=== PATIENT | male | born 1935 | race Caucasian/White ===

== ENCOUNTER 2022-09-21 06:10 | Inpatient (IN) ==
--- NOTE | 2022-09-21 06:22 | Emergency Department Note ---
Weakness HPI General Chief complaint: Weakness Stated complaint: Weakness Source: patient Mode of arrival: ambulatory Limitations: no limitations History of Present Illness HPI Narrative: Narrative: This is a 87-year-old male that presents with complaints of weakness and now difficulty with urination with some dark foul-smelling urine. The patient felt that maybe he had heatstroke though he was mostly in the house yesterday despite the complaint of the heat. The patient had no syncopal episode. He can continues to be weak. He has been able to eat without emesis. He has had previous history of a probable cystoscopy due to BPH. He states he usually gets up once a night for urinating. He was very weak when trying to get up today. He denies chest pain. 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 EKG and labs as well as fluids and antibiotics are planned. He does take medication for postnasal drip and allergies at home as well. Related Data Home Medications Medication Instructions Recorded Confirmed aspirin 81 mg tablet,delayed 81 mg PO QDAY 12/05/15 09/16/22 release multivitamin (Multiple Vitamins 1 tab-cap PO QDAY 12/05/15 09/16/22 tablet) ascorbic acid (vitamin C) 500 mg 500 mg PO QDAY 06/19/17 09/16/22 tablet (Vitamin C With Connie Hips) desonide 0.05 % topical ointment 1 applic topical QDAY 06/19/17 09/16/22 fluocinolone 0.01 % shampoo 30 ml topical QDAY PRN Dry Skin 06/19/17 09/16/22 omega-3 fatty acids-fish oil 360 1 cap PO BID 06/19/17 09/16/22 mg-1,200 mg capsule (Fish Oil) potassium gluconate 595 mg (99 mg) 595 mg PO QDAY 12/16/18 09/16/22 tablet calcium carbonate 600 mg-vitamin 1 cap PO QDAY 05/01/21 09/16/22 D3 25 mcg (1,000 unit) capsule cetirizine 10 mg tablet (All Day 10 mg PO QDAY 05/01/21 09/16/22 Allergy (cetirizine)) cholecalciferol (vitamin D3) 25 25 mcg PO QDAY 05/01/21 09/16/22 mcg (1,000 unit) capsule cyanocobalamin (vitamin B-12) 1,000 mcg PO QDAY 05/01/21 09/16/22 1,000 mcg tablet ferrous sulfate 325 mg (65 mg 325 mg PO QDAY 05/01/21 09/16/22 iron) tablet (Feosol) ipratropium bromide 42 mcg (0.06 2 spray intranasal TID 05/01/21 09/16/22 %) nasal spray magnesium 250 mg tablet 250 mg PO QDAY 05/01/21 09/16/22 Previous Rx's Medication Instructions Recorded nitroglycerin 0.4 mg sublingual 0.4 mg sublingual Q5M PRN chest 12/06/15 tablet (Nitrostat) pain #25 tabs rosuvastatin 10 mg tablet 10 mg PO QDAY #90 tabs 07/31/16 omeprazole 20 mg capsule,delayed 20 mg PO QDAY #90 caps 12/20/19 release lisinopril 5 mg tablet 2.5 mg PO QDAY #45 tabs 10/04/20 metformin 500 mg tablet,extended 500 mg PO BID #180 tabs 05/30/22 release 24hr Allergies Allergy/AdvReac Type Severity Reaction Status Date / Time atorvastatin [From Lipitor] AdvReac Unknown Muscle Pain Verified 09/21/22 06:14 Review of Systems ROS ROS Narrative: Narrative: 10 point review was reviewed and otherwise negative except described above in HPI PFSH Narrative Patient History Narrative: Narrative: Medical/Surgical/Family History All Active Problems (Updated 09/21/22 @ 06:47 by Porfirio Murillo, ) Hypovolemia (Acute) Urinary tract infection (Acute) Dehydration (Acute) Lymphocytosis (Acute) CAD (coronary artery disease) (Acute) GERD (gastroesophageal reflux disease) (Acute) Post-nasal drip (Acute) Left lower quadrant abdominal pain (Acute) Reactive airway disease (Acute) Cough (Chronic) Macular degeneration (Chronic) Venous insufficiency (Chronic) Bradycardia (Chronic) Sinus arrhythmia (Chronic) Leg cramps (Chronic) Fall (Chronic) Blurred vision, left eye (Chronic) Premature atrial contraction (Chronic) Disorder of intraocular lens (Chronic) Pes planus (Chronic) Peripheral vascular disease (Chronic) Peripheral neuropathy (Chronic) Osteopenia (Chronic) Osteoarthritis (Chronic) Myocardial infarction, old (Chronic) Myalgia (Chronic) Ischemic heart disease (Chronic) Hypotension (Chronic) Hyperlipidemia (Chronic) Hematuria (Chronic) Fatigue (Chronic) Diabetes mellitus, type II (Chronic) Colon adenoma (Chronic) Bronchitis (Chronic) Arthralgia (Chronic) Anemia (Chronic) Medical History Anemia Arthralgia Blurred vision, left eye since hit left temporal area one month ago Bradycardia Bronchitis Cerumen impaction (07/06/14) (07/06/2014-/[place]) Colon adenoma Remote Diabetes mellitus, type II A1c 6.9% 3 months ago Continue metformin ER 500 mg twice daily Peripheral neuropathy. Advised to check feet daily for wounds. Diabetic eye exam annually. No history of retinopathy. Diabetic diet recommended. Diarrhea Disorder of intraocular lens Encounter for removal of skin lesion (06/22/08) Fatigue Gastritis Hematuria Hyperlipidemia Hypotension Ischemic heart disease (11/17/13-Dr Taveras) Left lower quadrant abdominal pain 9 days Consider renal stone, but urine dipstick negative for blood. No signs of urinary obstruction. Likely secondary to constipation. Start MiraLAX twice daily until normal bowel movements, and then once daily as needed after that. Increase fluid intake to about 50 ounces per day. Patient advised to come back to clinic, or call, if symptoms do not improve, or if they worsen. Leg cramps Macular degeneration Myalgia Myocardial infarction, old Osteoarthritis Osteopenia Peripheral neuropathy Peripheral vascular disease Palpable peripheral pulses. No claudication. Pes planus Premature atrial contraction Sinus arrhythmia On EKG today Skull fracture Patient received skull fracture from a thrown baseball when he was a teenager. Venous insufficiency Dr Anderson Surgical History History of cataract surgery Bilateral History of colonoscopy (08/22/11) Hyperplastic polyps History of esophagogastroduodenoscopy (EGD) (07/06/08) Villous mucosa with mild chronic inflammation, edema and focal fibrosis; AB- Pas stain negative for gastric metaplasia; no significant epithelial lymphocytosis identified Status post transurethral resection of prostate (10/09/11) Prostatic glandular and stromal hyperplasia; chronic prostatitis; no malignancy identified Family History Mother , at 89 Colon cancer Father , at 78 Heart disease Unknown Hypertension, essential Brother , at 79 Myocardial infarction acute Sister , at 77 Myocardial infarction acute Social History Smoking Status: Former smoker Alcohol Intake Frequency: former alcohol drinker Substance Use: does not use Exam Narrative Narrative: Narrative: General Limitations: no limitations General appearance: Present alert Head Head: Present atraumatic and normocephalic Eye Eye: Present PERRL (None) and scleral icterus (None) ENT ENT: Present mucous membranes dry and nasal congestion (None) Neck Neck: Present normal inspection and trachea midline Chest Chest: Present symmetric chest wall rise and other (Anterior chest wall CABG scar) Respiratory Respiratory: Present wheezes (None) and decreased breath sounds (At bases bilaterally) Cardiovascular Cardiovascular: Present regular rate, normal rhythm and JVD (Minimal) Adbominal Abdominal: Present soft, guarding (No), rebound (No), rigidity (No), normal bowel sounds and ascites (None) : Present other (Bladder scan showed low residual urine after minimal output for specimen) Extremities Extremities: Present normal inspection and normal capillary refill Neurological Neurological: Present alert and oriented X3 Skin Skin: Present warm (WNL) and other (Please see chest exam regarding scar) Course Course Course Narrative: Patient has been seen immediately and has an order for a liter of IV fluid. Urinalysis to be sent. Urinary dip so far showing many leukocytes. It is quite dark as well. Order for Rocephin has been given empirically for urinary infection. The patient did have EKG performed due to his weakness which shows in my opinion sinus rhythm with a rate of 90, right bundle branch block pattern, AK interval 159 with QRS duration of 150. QTc is 486. There is no obvious sign of an acute ischemic event though troponin is pending. Have ordered [id number] testing as well as hepatic labs and urinalysis, chest x-ray. Vital Signs Vital signs: Vital Signs Temperature 98.0 F 09/21/22 06:10 Pulse Rate 87 09/21/22 06:10 Respiratory Rate 20 09/21/22 06:10 Blood Pressure 122/65 09/21/22 06:10 Pulse Oximetry (%) 97 09/21/22 06:10 Oxygen Delivery Method Room Air 09/21/22 06:10 Temperature 98.0 F 09/21/22 06:10 Pulse Rate 87 09/21/22 06:10 Respiratory Rate 20 09/21/22 06:10 Blood Pressure 122/65 09/21/22 06:10 Pulse Oximetry (%) 97 09/21/22 06:10 Oxygen Delivery Method Room Air 09/21/22 06:10 MDM MDM Narrative Medical decision making narrative: Narrative: Discharge Plan Patient/Caregiver Discharge Instructions Pt seen by SECTION HOUSEKEEPER/PA only: No Clinical Impression: Hematuria, Hypovolemia, Urinary tract infection, Dehydration Patient Disposition: Still a Patient Follow up with: Silver Kimball DO [Primary Care Provider] - Prescriptions: No Action lisinopril 5 mg tablet 2.5 mg PO QDAY Qty: 45 3RF metformin 500 mg tablet extended release 24hr 500 mg PO BID Qty: 180 0RF nitroglycerin [Nitrostat] 0.4 mg tablet, sublingual 0.4 mg SUBLINGUAL Q5M PRN (Reason: chest pain) Qty: 25 3RF multivitamin [Multiple Vitamins] tablet 1 tab-cap PO QDAY aspirin 81 mg tablet,delayed release (DR/EC) 81 mg PO QDAY rosuvastatin 10 mg tablet 10 mg PO QDAY Qty: 90 3RF omega-3 fatty acids-fish oil [Fish Oil] 360-1,200 mg capsule 1 cap PO BID ascorbic acid (vitamin C) [Vitamin C With Connie Hips] 500 mg tablet 500 mg PO QDAY fluocinolone 0.01 % shampoo 30 ml TOPICAL QDAY PRN (Reason: Dry Skin) desonide 0.05 % ointment 1 applic TOPICAL QDAY potassium gluconate 595 mg (99 mg) tablet 595 mg PO QDAY omeprazole 20 mg capsule,delayed release(DR/EC) 20 mg PO QDAY Qty: 90 1RF calcium carbonate-vitamin D3 600 mg-25 mcg (1,000 unit) capsule 1 cap PO QDAY magnesium 250 mg tablet 250 mg PO QDAY cyanocobalamin (vitamin B-12) 1,000 mcg tablet 1,000 mcg PO QDAY cetirizine [All Day Allergy (cetirizine)] 10 mg tablet 10 mg PO QDAY cholecalciferol (vitamin D3) 25 mcg (1,000 unit) capsule 25 mcg PO QDAY ipratropium bromide 42 mcg (0.06 %) spray,non-aerosol 2 spray intranasal TID Rx Instructions: administer into each nostril ferrous sulfate [Feosol] 325 mg (65 mg iron) tablet 325 mg PO QDAY
[2022-09-21] MEDS ORDERED: 0.9 % SODIUM CHLORIDE 1,000 ML IV ONE ×2 (06:27→08:25)
[2022-09-21] MEDS ORDERED: cefTRIAXone 1 GM VIAL IV ONE (06:30)
[2022-09-21 06:38] LABS: POC Calcium, Ionized 1.16 (1.16-1.32); POC Creatinine 0.9 (0.6-1.2); POC Potassium 3.8 (3.3-5.1)
--- NOTE | 2022-09-21 07:06 | XRay Report ---
CLINICAL INFORMATION: Cough COMPARISON: 03/27/2022. TECHNIQUE: Portable FINDINGS: The heart size, mediastinum and pulmonary vessels are unremarkable. Nii/CABG changes noted. The lungs are clear. There are no effusions. The bones and soft tissues are within normal limits. IMPRESSION: Normal chest. Interpreted and Authenticated by: Silver Drake 09/21/22
[2022-09-21 07:25] LABS: Basophils # (Auto) 0.07 K/mcL (0.00-0.30); Basophils % (Auto) 0.2 % (0.0-2.0); Eosinophils # (Auto) 0.07 K/mcL (0.00-0.70); Eosinophils % (Auto) 0.2 % (0.0-7.0); Hematocrit 38.5 % (40.1-51.0); Hemoglobin 12.8 g/dL (13.7-17.5); Lymphocytes # (Auto) 12.79 K/mcL (1.50-4.80); Lymphocytes % (Auto) 40.7 % (15.5-49.0); Mean Cell Volume 88.5 fL (80.0-100.0); Mean Corpuscular HGB Conc 33.2 g/dL (31.0-36.0); Mean Platelet Volume 10.1 fL (8.8-12.5); Monocytes # (Auto) 2.04 K/mcL (0.10-0.90); Monocytes % (Auto) 6.5 % (1.0-12.0); Platelet Count 152 K/mcL (140-440); RBC 4.35 M/mcL (4.63-6.08); Red Cell Distribution Width 13.2 % (11.5-14.5); WBC 31.4 K/mcL (4.5-11.0)
--- NOTE | 2022-09-21 08:10 | Emergency Department Note ---
ED Note Addendum Note Addendum: s/o pending labs re eval. cbc shows wbc 31. udip consistent with UTI. prior physician had ordered blood cultures, IVF, IV abx. 30 cc/kg bolus not given 2/2 prior history of CABG and concern for fluid overload. 1 L given. 0.9 NS at 125 cc/hr. updated pt on results clinically impressions tx plan. questions have been answered at length. agreeable to admission. hospitalist paged
[2022-09-21] MEDS ORDERED: 0.9 % SODIUM CHLORIDE 1,000 ML IV SCH ×2 (08:30→10:27)
[2022-09-21 08:37] LABS: Appearance,Urine CLOUDY (Clear); Bilirubin,Urine Negative (Negative); Color,Urine YELLOW; Culture Indicated,Urine yes; Glucose,Urine (UA) Negative (Negative); Ketones,Urine Negative (Negative); Leukocyte Esterase,Urine 250 /uL (Negative); Mucus,Urine MOD /hpf; Nitrate,Urine Negative (Negative); Protein,Urine 100 mg/dL (Negative); Specific Gravity,Urine 1.017 (1.000-1.035); Urine Hyaline Cast 20 /lph (0-2); Urine RBC > 182 /hpf (0-1); Urine Squamous Epithelial Cell 0 /hpf (0-4); Urine WBC > 182 /hpf (0-4); Urobilinogen,Urine Negative
--- NOTE | 2022-09-21 10:15 | Internal Med History&Physical ---
HPI History of Present Illness Patient information: Note initiated : 09/21/22 at 10:07 am Service Date, if different from initiated Date: [] Patient: Tony Abbott 87 y/o M admitted on 09/21/22. Chief Complaint: [] History of present illness: Mr. Abbott is a 87 year old M Presents the ED with weakness urinary frequency , Difficulty urinating and mild dysuria. patient was working outside most the day yesterday and was worried about heatstroke. He denies headache fever chills nausea or vomiting. he says he went to bed feeling okay but then when he woke up in the middle night to go to the bathroom as he typically does he was weaker than usual. He also felt like he had to get up much more frequently to urinate. Patient evaluated in the ED found to have a UTI. Leukocytosis 31,000. Elevated BUN to creatinine ratio. Antibiotics and IV fluids started in the ED. Review of Systems: Pertinent positives as above. denies headache/fever/chills/chest or abdominal pain/cough/dyspnea/diarrhea. Remaining 10 point review of system reviewed negative PHYSICAL EXAM General: Alert, Awake, No acute Distress Eyes/N/T: EOMI, no scleral icterus, PERRL, dry MM Head/Neck: neck supple, full ROM, normocephalic atraumatic CV: RRR, No murmurs, normal s1/s2 Pulm: Clear b/l, no wheezing/rhonchi/rales, no respiratory distress Abd: soft, nontender, +BS x4 Ext: no clubbing/cyanosis/edema, nontender Neuro: Alert, CN 2-12 grossly intact, no focal deficits, moves all extremities, , sensations intact b/l upper/lower Psychiatric: Skin: warm/dry, normal color PFSH PFSH All Active Problems (Updated 09/21/22 @ 06:47 by Porfirio Murillo DO) Hypovolemia (Acute) Urinary tract infection (Acute) Dehydration (Acute) Lymphocytosis (Acute) CAD (coronary artery disease) (Acute) GERD (gastroesophageal reflux disease) (Acute) Post-nasal drip (Acute) Left lower quadrant abdominal pain (Acute) Reactive airway disease (Acute) Cough (Chronic) Macular degeneration (Chronic) Venous insufficiency (Chronic) Bradycardia (Chronic) Sinus arrhythmia (Chronic) Leg cramps (Chronic) Fall (Chronic) Blurred vision, left eye (Chronic) Premature atrial contraction (Chronic) Disorder of intraocular lens (Chronic) Pes planus (Chronic) Peripheral vascular disease (Chronic) Peripheral neuropathy (Chronic) Osteopenia (Chronic) Osteoarthritis (Chronic) Myocardial infarction, old (Chronic) Myalgia (Chronic) Ischemic heart disease (Chronic) Hypotension (Chronic) Hyperlipidemia (Chronic) Hematuria (Chronic) Fatigue (Chronic) Diabetes mellitus, type II (Chronic) Colon adenoma (Chronic) Bronchitis (Chronic) Arthralgia (Chronic) Anemia (Chronic) Medical History Anemia Arthralgia Blurred vision, left eye since hit left temporal area one month ago Bradycardia Bronchitis Cerumen impaction (07/06/14) (07/06/2014-/Violeta) Colon adenoma Remote Diabetes mellitus, type II A1c 6.9% 3 months ago Continue metformin ER 500 mg twice daily Peripheral neuropathy. Advised to check feet daily for wounds. Diabetic eye exam annually. No history of retinopathy. Diabetic diet recommended. Diarrhea Disorder of intraocular lens Encounter for removal of skin lesion (06/22/08) Fatigue Gastritis Hematuria Hyperlipidemia Hypotension Ischemic heart disease (11/17/13-Dr Taveras) Left lower quadrant abdominal pain 9 days Consider renal stone, but urine dipstick negative for blood. No signs of urinary obstruction. Likely secondary to constipation. Start MiraLAX twice daily until normal bowel movements, and then once daily as needed after that. Increase fluid intake to about 50 ounces per day. Patient advised to come back to clinic, or call, if symptoms do not improve, or if they worsen. Leg cramps Macular degeneration Myalgia Myocardial infarction, old Osteoarthritis Osteopenia Peripheral neuropathy Peripheral vascular disease Palpable peripheral pulses. No claudication. Pes planus Premature atrial contraction Sinus arrhythmia On EKG today Skull fracture Patient received skull fracture from a thrown baseball when he was a teenager. Venous insufficiency Dr Anderson Surgical History History of cataract surgery Bilateral History of colonoscopy (08/22/11) Hyperplastic polyps History of esophagogastroduodenoscopy (EGD) (07/06/08) Villous mucosa with mild chronic inflammation, edema and focal fibrosis; AB- Pas stain negative for gastric metaplasia; no significant epithelial lymphocytosis identified Status post transurethral resection of prostate (10/09/11) Prostatic glandular and stromal hyperplasia; chronic prostatitis; no malignancy identified Family History Mother , at 89 Colon cancer Father , at 78 Heart disease Unknown Hypertension, essential Brother , at 79 Myocardial infarction acute Sister , at 77 Myocardial infarction acute Social History household members: alone housing: house lives independently: Yes marital status: single occupational status: retired smoking status: Former smoker alcohol intake frequency: former alcohol drinker substance use type: does not use MEDS/ALLERGIES Home Medications and Allergies Home Medications Medication Instructions Recorded Confirmed Type aspirin 81 mg tablet,delayed 81 mg PO QDAY 12/05/15 09/16/22 History release multivitamin (Multiple Vitamins 1 tab-cap PO QDAY 12/05/15 09/16/22 History tablet) nitroglycerin 0.4 mg sublingual 0.4 mg sublingual Q5M PRN chest 12/06/15 09/16/22 Rx tablet (Nitrostat) pain #25 tabs rosuvastatin 10 mg tablet 10 mg PO QDAY #90 tabs 07/31/16 09/16/22 Rx ascorbic acid (vitamin C) 500 mg 500 mg PO QDAY 06/19/17 09/16/22 History tablet (Vitamin C With Connie Hips) desonide 0.05 % topical ointment 1 applic topical QDAY 06/19/17 09/16/22 History fluocinolone 0.01 % shampoo 30 ml topical QDAY PRN Dry Skin 06/19/17 09/16/22 History omega-3 fatty acids-fish oil 360 1 cap PO BID 06/19/17 09/16/22 History mg-1,200 mg capsule (Fish Oil) potassium gluconate 595 mg (99 mg) 595 mg PO QDAY 12/16/18 09/16/22 History tablet omeprazole 20 mg capsule,delayed 20 mg PO QDAY #90 caps 12/20/19 09/16/22 Rx release lisinopril 5 mg tablet 2.5 mg PO QDAY #45 tabs 10/04/20 09/16/22 Rx calcium carbonate 600 mg-vitamin 1 cap PO QDAY 05/01/21 09/16/22 History D3 25 mcg (1,000 unit) capsule cetirizine 10 mg tablet (All Day 10 mg PO QDAY 05/01/21 09/16/22 History Allergy (cetirizine)) cholecalciferol (vitamin D3) 25 25 mcg PO QDAY 05/01/21 09/16/22 History mcg (1,000 unit) capsule cyanocobalamin (vitamin B-12) 1,000 mcg PO QDAY 05/01/21 09/16/22 History 1,000 mcg tablet ferrous sulfate 325 mg (65 mg 325 mg PO QDAY 05/01/21 09/16/22 History iron) tablet (Feosol) ipratropium bromide 42 mcg (0.06 2 spray intranasal TID 05/01/21 09/16/22 History %) nasal spray magnesium 250 mg tablet 250 mg PO QDAY 05/01/21 09/16/22 History metformin 500 mg tablet,extended 500 mg PO BID #180 tabs 05/30/22 09/16/22 Rx release 24hr Allergies Allergy/AdvReac Type Severity Reaction Status Date / Time atorvastatin [From Lipitor] AdvReac Unknown Muscle Pain Verified 09/21/22 06:14 EXAM Constitutional Vitals: Temp Pulse Resp BP Pulse Ox O2 Del Method 98.0 F 61 17 103/57 98 Room Air 09/21/22 09:23 09/21/22 09:23 09/21/22 09:23 09/21/22 09:23 09/21/22 09:23 09/21/22 06:10 DATA Data Completed and Pending Labs: Labs from last 24 hours 09/21/22 09/21/22 09/21/22 09:10 09:10 06:42 WBC RBC Hgb Hct POC Hct MCV MCH MCHC RDW Plt Count MPV Immature Gran % (Auto) Neut % (Auto) Lymph % (Auto) [place] % (Auto) Eos % (Auto) Baso % (Auto) Lymph # (Auto) [place] # (Auto) Eos # (Auto) Baso # (Auto) Immature Gran # Absolute Neutrophils VBG Lactic Acid 1.4 POC Sodium POC Potassium POC Chloride POC Total CO2 POC Anion Gap POC BUN POC Creatinine POC Glucose POC WB Ioniz Calcium Total Bilirubin Pending Direct Bilirubin Pending AST Pending ALT Pending Alkaline Phosphatase Pending Total Protein Pending Albumin Pending Globulin Pending Urine Color Yellow Urine Appearance Cloudy A Urine pH 7.0 Ur Specific [place] 1.017 Urine Protein 100 A Urine Glucose (UA) Negative Urine Ketones Negative Urine Occult Blood 0.20 Urine Nitrate Negative Urine Bilirubin Negative Urine Urobilinogen Negative Ur Leukocyte Esterase 250 A Urine RBC > 182 H Urine WBC > 182 H Ur Squamous Epith Cells 0 Urine Bacteria None Hyaline Casts 20 H Urine Mucus Mod A Ur Culture Indicated? yes POC Troponin I 09/21/22 09/21/22 09/21/22 06:40 06:36 06:32 WBC 31.4 H* RBC 4.35 L Hgb 12.8 L Hct 38.5 L POC Hct 40.0 L MCV 88.5 MCH 29.4 MCHC 33.2 RDW 13.2 Plt Count 152 MPV 10.1 Immature Gran % (Auto) 0.4 Neut % (Auto) 52.0 Lymph % (Auto) 40.7 [place] % (Auto) 6.5 Eos % (Auto) 0.2 Baso % (Auto) 0.2 Lymph # (Auto) 12.79 H [place] # (Auto) 2.04 H Eos # (Auto) 0.07 Baso # (Auto) 0.07 Immature Gran # 0.14 H Absolute Neutrophils 16.28 H VBG Lactic Acid POC Sodium 139 POC Potassium 3.8 POC Chloride 103 POC Total CO2 21.0 L POC Anion Gap 20.0 H POC BUN 20 POC Creatinine 0.9 POC Glucose 146 H POC WB Ioniz Calcium 1.16 Total Bilirubin Direct Bilirubin AST ALT Alkaline Phosphatase Total Protein Albumin Globulin Urine Color Urine Appearance Urine pH Ur Specific [place] Urine Protein Urine Glucose (UA) Urine Ketones Urine Occult Blood Urine Nitrate Urine Bilirubin Urine Urobilinogen Ur Leukocyte Esterase Urine RBC Urine WBC Ur Squamous Epith Cells Urine Bacteria Hyaline Casts Urine Mucus Ur Culture Indicated? POC Troponin I < 0.02 A/P Narrative A/P Narrative: A: *UTI(), complicated: *Sepsis: *Generalized weakness/Lethargy: 2/2 above *Volume depletion: *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: Following outpatient with hematology *DM2 w/neuropathy: *CAD w/cabg: on asa/statin *CKD II: *Anemia, chronic: *HTN/HLD: *GERD: P: -Rocephin, pending UC/BC -IVF -f/u chemistry -bladder scan - -cont home asa/statin -hold ACEI for soft BP -SSI -Home medication reconciliation -PT/OT -CM for placement needs -ppx: Lovenox / home ppi DNR Time Spent With Patient Time: Total time spent is greater than 50% in coordination of care (as documented) at patient's floor/unit and/or counseling patient: Initial: Total time with patient: 55 - 74 minutes
[2022-09-21 10:24] LABS: ALT/SGPT 14 U/L (<40); AST/SGOT 18 U/L (<40); Albumin 3.8 gm/dL (3.2-5.2); Alkaline Phosphatase 67 U/L (39-117); Bilirubin,Direct 0.2 mg/dL (<0.3); Bilirubin,Total 0.9 mg/dL (0.1-1.0); Globulin 2.1 gm/dL (2.2-3.7)
[2022-09-21] MEDS ORDERED: ACETAMINOPHEN 325 MG TABLET PO PRN (10:24)
[2022-09-21] MEDS ORDERED: IPRATROPIUM/ALBUTEROL 3 ML AMPUL.NEB NEB PRN (10:24)
[2022-09-21] MEDS ORDERED: POTASSIUM CHLORIDE 20 MEQ TABLET PO PRN ×2 (10:24)
[2022-09-21] MEDS ORDERED: POLYETHYLENE GLYCOL 3350 17 GM PACKET PO PRN (10:24)
[2022-09-21] MEDS ORDERED: ONDANSETRON 4 MG/2 ML VIAL IV PRN (10:24)
[2022-09-21] MEDS ORDERED: SENNOSIDES 1 TABLET PO PRN (10:24)
[2022-09-21] MEDS ORDERED: POTASSIUM CHLORIDE 40 MEQ in DEXTROSE 5% IN WATER 500 ML IV PRN (10:24)
[2022-09-21] MEDS ORDERED: MAGNESIUM SULFATE 2 GM/50 ML BAG IV PRN (10:24)
[2022-09-21] MEDS ORDERED: cefTRIAXone 1 GM in DEXTROSE 5% IN WATER 50 ML IV SCH (10:30)
[2022-09-21] MEDS: ENOXAPARIN 40 MG/0.4 ML SYRINGE SQ SCH (10:45)
[2022-09-21] MEDS: 0.9 % SODIUM CHLORIDE 10 ML SYRINGE IV SCH ×2 (14:34→20:59)
[2022-09-21] MEDS ORDERED: NITROGLYCERIN 0.4 MG TAB.SUBL SL PRN (15:27)
[2022-09-21] MEDS: DOCUSATE SODIUM 100 MG CAPSULE PO SCH (20:59)
[2022-09-21] MEDS: ROSUVASTATIN 10 MG TABLET PO SCH (20:59)
--- NOTE | 2022-09-21 21:04 | EKG ---
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
[2022-09-22] MEDS: 0.9 % SODIUM CHLORIDE 10 ML SYRINGE IV SCH ×3 (04:27→21:08)
[2022-09-22 06:45] LABS: Hematocrit 36.3 % (40.1-51.0); Hemoglobin 11.8 g/dL (13.7-17.5); Mean Cell Volume 90.5 fL (80.0-100.0); Mean Corpuscular HGB Conc 32.5 g/dL (31.0-36.0); Mean Platelet Volume 10.5 fL (8.8-12.5); Platelet Count 133 K/mcL (140-440); RBC 4.01 M/mcL (4.63-6.08); Red Cell Distribution Width 13.4 % (11.5-14.5); WBC 27.1 K/mcL (4.5-11.0)
[2022-09-22 07:22] LABS: ALT/SGPT 13 U/L (<40); AST/SGOT 16 U/L (<40); Albumin 3.5 gm/dL (3.2-5.2); Albumin/Globulin Ratio 1.6 (1.0-2.3); Alkaline Phosphatase 64 U/L (39-117); Bilirubin,Direct 0.3 mg/dL (<0.3); Bilirubin,Total 1.3 mg/dL (0.1-1.0); Blood Urea Nitrogen 21 mg/dL (8-23); Calcium 8.3 mg/dL (8.6-10.4); Carbon Dioxide 21 mmol/L (22-30); Chloride 105 mmol/L (96-108); Globulin 2.2 gm/dL (2.2-3.7); Glomerular Filtration Rate 67; Glucose 118 mg/dL (70-105); Lactate Dehydrogenase 163 U/L (135-225); Phosphorous 2.9 mg/dL (2.5-4.5); Triglycerides 81 mg/dL (<150); Uric Acid 4.4 mg/dL (2.5-8.0)
[2022-09-22] MEDS: OMEPRAZOLE 20 MG CAPSULE PO SCH (07:52)
--- NOTE | 2022-09-22 08:21 | Internal Med Progress Note ---
SUBJECTIVE Subjective Patient information: Note initiated : 09/22/22 at 8:18 am Service Date, if different from initiated Date: [] Patient: Tony Abbott 87 y/o M admitted on 09/21/22. Chief Complaint: [] Interval history: History of present illness: Mr. Abbott is a 87 year old M Presents the ED with weakness urinary frequency , Difficulty urinating and mild dysuria. patient was working outside most the day yesterday and was worried about heatstroke. He denies headache fever chills nausea or vomiting. he says he went to bed feeling okay but then when he woke up in the middle night to go to the bathroom as he typically does he was weaker than usual. He also felt like he had to get up much more frequently to urinate. Patient evaluated in the ED found to have a UTI. Leukocytosis 31,000. Elevated BUN to creatinine ratio. Antibiotics and IV fluids started in the ED. 09/22 Patient stated he slept all right. No overnight event or new complaints. Leukocytosis present but no bandemia. Awaiting urine culture. Review of Systems: Pertinent positives as above. denies headache/fever/chills/chest or abdominal pain/cough/dyspnea/diarrhea. PHYSICAL EXAM General: Alert, Awake, No acute Distress Eyes/N/T: EOMI, no scleral icterus, Head/Neck: neck supple, full ROM, CV: kevan but regular, 2/6SM Pulm: Clear b/l, no wheezing/rhonchi/rales, no respiratory distress Abd: soft, nontender, +BS x4 Ext: no clubbing/cyanosis/edema, nontender Neuro: Alert, no focal deficits, moves all extremities, , sensations intact b/l upper/lower Psychiatric: Skin: warm/dry, normal color Constitutional Vitals: Vital Signs Temp Pulse Resp BP Pulse Ox O2 Del Method 98.8 F 88 17 109/53 94 Room Air 09/22/22 04:21 09/22/22 04:21 09/22/22 04:21 09/22/22 04:21 09/22/22 04:21 09/22/22 04:21 Period Temp Pulse Resp BP Sys/Carpio Pulse Ox O2 Del Method O2 Flow Rate Last 24 Hr 98.0 F-99.3 F 58-88 14-20 102-128/47-88 93-98 Room Air-Room Air Intake and Output 09/21/22 09/22/22 09/22/22 19:59 03:59 11:59 Intake Total 600 800 800 Output Total 275 200 200 Balance 325 600 600 Weight 82.508 kg Intake & Output: Intake & Output 09/21/22 09/22/22 09/22/22 19:59 03:59 11:59 Intake Total 600 800 800 Output Total 275 200 200 Balance 325 600 600 Weight 82.508 kg Intake: IV 800 Sodium Chloride 0.9% 1,000 ml @ 800 84 mls/hr IV .[id number] [facility] Rx#: [id number] Oral 600 800 Output: Void Amount 275 200 200 Other: Meal Lunch Dinner Percent of Meal Consumed 100% 100% Feeding Ability Independent Urine Appearance Cloudy Clear Clear Urine Color Dark Yellow Dark Yellow Dark Yellow Urine Odor Strong Normal Normal Stool Size Moderate Stool Color Brown Stool Consistency Anette # Bowel Movements 1 OBJ DATA Labs 09/22/22 05:39 09/22/22 05:39 Labs: Abnormal Lab Results 09/22/22 09/22/22 09/21/22 05:39 05:39 09:10 WBC 27.1 H RBC 4.01 L Hgb 11.8 L Hct 36.3 L POC Hct Plt Count 133 L Lymph # (Auto) [place] # (Auto) Immature Gran # Absolute Neutrophils Carbon Dioxide 21 L POC Total CO2 POC Anion Gap Glucose 118 H POC Glucose Calcium 8.3 L Total Bilirubin 1.3 H Direct Bilirubin 0.3 H Total Protein 5.7 L Globulin 2.1 L Urine Appearance Urine Protein Ur Leukocyte Esterase Urine RBC Urine WBC Hyaline Casts Urine Mucus 09/21/22 09/21/22 09/21/22 06:42 06:36 06:32 WBC 31.4 H* RBC 4.35 L Hgb 12.8 L Hct 38.5 L POC Hct 40.0 L Plt Count Lymph # (Auto) 12.79 H [place] # (Auto) 2.04 H Immature Gran # 0.14 H Absolute Neutrophils 16.28 H Carbon Dioxide POC Total CO2 21.0 L POC Anion Gap 20.0 H Glucose POC Glucose 146 H Calcium Total Bilirubin Direct Bilirubin Total Protein Globulin Urine Appearance Cloudy A Urine Protein 100 A Ur Leukocyte Esterase 250 A Urine RBC > 182 H Urine WBC > 182 H Hyaline Casts 20 H Urine Mucus Mod A Meds: Medications Acetaminophen (Acetaminophen 325 Mg Tablet) 650 mg PO Q6HP PRN; Protocol PRN Reason: Per Pain Protocol/Fever > 101 Albuterol/Ipratropium (Ipratropium/Albuterol 3 Ml Ampul.Neb) 3 ml NEB Q4HP PRN PRN Reason: Shortness Of Breath Aspirin (Aspirin 81 Mg Tab.Chew) 81 mg PO QDAY [facility] Ceftriaxone Sodium (Ceftriaxone 1 Gm Vial) 1 gm IV Q24H [facility] Docusate Sodium (Docusate Sodium 100 Mg Capsule) 100 mg PO BID [facility] Last Admin: 09/21/22 20:59 Dose: 100 mg Enoxaparin Sodium (Enoxaparin 40 Mg/0.4 Ml Syringe) 40 mg SQ DAILY [facility] Last Admin: 09/21/22 10:45 Dose: 40 mg Potassium Chloride 40 meq/ (Dextrose) 520 mls @ 130 mls/hr IV UD PRN PRN Reason: Potassium < 3 Magnesium Sulfate (Magnesium Sulfate) 2 gm in 50 mls @ 50 mls/hr IV UD PRN PRN Reason: Magnesium </= 1.6 Nitroglycerin (Nitroglycerin 0.4 Mg Tab.Subl) 0.4 mg SL Q5M PRN PRN Reason: chest pain Omeprazole (Omeprazole 20 Mg Capsule) 20 mg PO QAMAC [facility] Last Admin: 09/22/22 07:52 Dose: 20 mg Ondansetron HCl (Ondansetron 4 Mg/2 Ml Vial) 4 mg IV Q4HP PRN PRN Reason: Nausea And Vomiting Polyethylene Glycol (Polyethylene Glycol 3350 17 Gm Packet) 17 gm PO DAILYP PRN PRN Reason: Constipation Potassium Chloride (Potassium Chloride 20 Meq Tablet) 40 meq PO UD PRN PRN Reason: Potssium is 3-3.5 Potassium Chloride (Potassium Chloride 20 Meq Tablet) 40 meq PO UD PRN PRN Reason: Potassium < 3 Rosuvastatin Calcium (Rosuvastatin 10 Mg Tablet) 10 mg PO QHS [facility] Last Admin: 09/21/22 20:59 Dose: Not Given Senna (Sennosides 1 Tablet) 2 tab PO DAILYP PRN PRN Reason: Constipation Sodium Chloride (0.9 % Sodium Chloride 10 Ml Syringe) 10 ml IV Q8 [facility] Last Admin: 09/22/22 04:27 Dose: 10 ml A/P Narrative A/P Narrative: A: *UTI(GNB), complicated: *Sepsis: improving *Generalized weakness/Lethargy: 2/2 above *Volume depletion: *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: Following outpatient with hematology *DM2 w/neuropathy: *CAD w/cabg: on asa/statin *CKD II: *Anemia, chronic: *HTN/HLD: *GERD: P: -Rocephin, pending UC/BC -IVF d/c -Monitor renal function/UOP/electrolytes and replace as needed - -cont home asa/statin -hold ACEI for soft BP -SSI -PT/OT -CM for placement needs -ppx: Lovenox / home ppi DNR Time Spent With Patient Time: Total time spent is greater than 50% in coordination of care (as documented) at patient's floor/unit and/or counseling patient: Subsequent: Total time with patient: 35 - 49 minutes QUALITY Stroke Symptom Onset Unknown: No VTE Deep Vein Thrombosis/Pulmonary Embolism Present on Admission: No
[2022-09-22] MEDS: DOCUSATE SODIUM 100 MG CAPSULE PO SCH ×2 (08:46→21:08)
[2022-09-22] MEDS: ASPIRIN 81 MG TAB.CHEW PO SCH (08:46)
[2022-09-22] MEDS: cefTRIAXone 1 GM VIAL IV SCH (08:46)
[2022-09-22] MEDS: ENOXAPARIN 40 MG/0.4 ML SYRINGE SQ SCH (08:46)
[2022-09-22 08:53] LABS: Band Neutrophils % 3 % (0-10); Lymphocytes % 34 % (15-49); Monocytes % (Manual) 4 % (1-12); Platelet Estimate DECREASED (Normal); RBC Morphology NORMAL (Normal); Reactive Lymphocytes 3 % (0-2); Segmented Neutrophils % 56 % (38-78)
--- NOTE | 2022-09-22 11:19 | Discharge Summary ---
Discharge Provider Provider IMPORTANT FOLLOW-UP INFORMATION FOR PCP: Patient information: Note initiated : 09/22/22 at 11:18 am Service Date, if different from initiated Date: [] Patient: Tony Abbott 87 y/o M admitted on 09/21/22. Chief Complaint: [] Date of admission: 09/21/22 09:29 Discharge date: 09/23/22 Primary care physician: Silver Kimball DO Consults: 09/21/22 Consult to Physician [CONS] Stat Comment: Consulting Provider: Wilber Forrester Reason For Exam: Physician to Consult COURSE Hospital Course Hospital course: History of present illness: Mr. Abbott is a 87 year old M Presents the ED with weakness urinary frequency , Difficulty urinating and mild dysuria. patient was working outside most the day yesterday and was worried about heatstroke. He denies headache fever chills nausea or vomiting. he says he went to bed feeling okay but then when he woke up in the middle night to go to the bathroom as he typically does he was weaker than usual. He also felt like he had to get up much more frequently to urinate. Patient evaluated in the ED found to have a UTI. Leukocytosis 31,000. Elevated BUN to creatinine ratio. Antibiotics and IV fluids started in the ED. 09/22 Patient stated he slept all right. No overnight event or new complaints. Leukocytosis present but no bandemia. Awaiting urine culture. 09/23 Patient doing well. Pansensitive E. coli. Patient feeling safe at home and does not request any home health care. A: *UTI(e.coli), complicated: *Sepsis: improving *Generalized weakness/Lethargy: 2/2 above *Volume depletion: *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: Following outpatient with hematology *DM2 w/neuropathy: *CAD w/cabg: on asa/statin *CKD II: *Anemia, chronic: *HTN/HLD: *GERD: P: -cipro Discharge diagnosis: complicated UTI sepsis weakness volume depletion Secondary discharge diagnosis: diabetes CAD CKD chronic anemia hypertension GERD Time Spent with Patient Time attestation: Total time spent providing and/or coordinating discharge services: Time spent: Greater than 30 minutes EXAM Constitutional Vitals: Temp Pulse Resp BP Pulse Ox O2 Del Method 98.2 F 54 L 22 123/56 94 Room Air 09/22/22 08:00 07/02/23 08:00 09/22/22 08:00 09/22/22 08:00 09/22/22 08:00 09/22/22 08:00 Discharge Data Data Completed and Pending Labs on day of discharge: Labs from last 24 hours 09/22/22 09/22/22 05:39 05:39 WBC 27.1 H RBC 4.01 L Hgb 11.8 L Hct 36.3 L MCV 90.5 MCH 29.4 MCHC 32.5 RDW 13.4 Plt Count 133 L MPV 10.5 Seg Neutrophils % 56 Band Neutrophils % 3 Lymphocytes % 34 Monocytes % (Manual) 4 Reactive Lymphocytes 3 H Platelet Estimate Decreased A RBC Morphology Normal Sodium 136 Potassium 3.7 Chloride 105 Carbon Dioxide 21 L Anion Gap 10.0 BUN 21 Creatinine 1.0 GFR Calculation 67 Glucose 118 H Uric Acid 4.4 Calcium 8.3 L Phosphorus 2.9 Magnesium 1.9 Total Bilirubin 1.3 H Direct Bilirubin 0.3 H GGT 11 AST 16 ALT 13 Alkaline Phosphatase 64 Lactate Dehydrogenase 163 Total Protein 5.7 L Albumin 3.5 Globulin 2.2 Albumin/Globulin Ratio 1.6 Triglycerides 81 Preliminary micro results at discharge 09/21/22 06:36 Blood Culture - Preliminary Blood 09/21/22 06:39 Blood Culture - Preliminary Blood Discharge Plan Patient/Caregiver Discharge Instructions Activity: increase activity as tolerated Diet: Consistent Carbohydrate Prescriptions: New ciprofloxacin HCl [Cipro] 500 mg tablet 500 mg PO BID Qty: 5 0RF Rx Instructions: start on 09/24/2022. Continued metformin 500 mg tablet extended release 24hr 500 mg PO BID Qty: 180 0RF nitroglycerin [Nitrostat] 0.4 mg tablet, sublingual 0.4 mg SUBLINGUAL Q5M PRN (Reason: chest pain) Qty: 25 3RF multivitamin [Multiple Vitamins] tablet 1 tab-cap PO QDAY aspirin 81 mg tablet,delayed release (DR/EC) 81 mg PO QDAY omega-3 fatty acids-fish oil [Fish Oil] 360-1,200 mg capsule 1 cap PO BID ascorbic acid (vitamin C) [Vitamin C With Connie Hips] 500 mg tablet 500 mg PO QDAY fluocinolone 0.01 % shampoo 30 ml TOPICAL QDAY PRN (Reason: Dry Skin) desonide 0.05 % ointment 1 applic TOPICAL QDAY potassium gluconate 595 mg (99 mg) tablet 595 mg PO QDAY omeprazole 20 mg capsule,delayed release(DR/EC) 20 mg PO QDAY Qty: 90 1RF calcium carbonate-vitamin D3 600 mg-25 mcg (1,000 unit) capsule 1 cap PO QDAY magnesium 250 mg tablet 250 mg PO QDAY cyanocobalamin (vitamin B-12) 1,000 mcg tablet 1,000 mcg PO QDAY cetirizine [All Day Allergy (cetirizine)] 10 mg tablet 10 mg PO QDAY cholecalciferol (vitamin D3) 25 mcg (1,000 unit) capsule 25 mcg PO QDAY ipratropium bromide 42 mcg (0.06 %) spray,non-aerosol 2 spray intranasal TID Rx Instructions: administer into each nostril ferrous sulfate [Feosol] 325 mg (65 mg iron) tablet 325 mg PO QDAY lisinopril 5 mg tablet 2.5 mg PO QDAY rosuvastatin 10 mg tablet 10 mg PO QHS gabapentin 100 mg Capsule See Rx Instructions .ROUTE .COMPLEX Rx Instructions: 1-2 capsules for peripheral neuropathy every day at bedtime Follow Up Plan Follow up with: Silver Kimball DO [Primary Care Provider] - Patient Disposition: Home, Self-Care Prognosis: Fair Overall status at discharge: patient is progressing back to baseline Discharge Orders: Discharge Order (Routine); Ordered 09/23/22 Ordered By: Wilber Forrester QUALITY VTE Deep Vein Thrombosis/Pulmonary Embolism Present on Admission: No
[2022-09-22] MEDS: ROSUVASTATIN 10 MG TABLET PO SCH (21:08)
[2022-09-23] MEDS: 0.9 % SODIUM CHLORIDE 10 ML SYRINGE IV SCH (03:59)
[2022-09-23 06:42] LABS: Basophils # (Auto) 0.05 K/mcL (0.00-0.30); Basophils % (Auto) 0.3 % (0.0-2.0); Eosinophils # (Auto) 0.39 K/mcL (0.00-0.70); Eosinophils % (Auto) 2.1 % (0.0-7.0); Hematocrit 34.4 % (40.1-51.0); Hemoglobin 11.3 g/dL (13.7-17.5); Lymphocytes # (Auto) 10.13 K/mcL (1.50-4.80); Lymphocytes % (Auto) 55.6 % (15.5-49.0); Mean Cell Volume 89.4 fL (80.0-100.0); Mean Corpuscular HGB Conc 32.8 g/dL (31.0-36.0); Monocytes # (Auto) 1.01 K/mcL (0.10-0.90); Monocytes % (Auto) 5.5 % (1.0-12.0); Neutrophils % (Auto) 36.3 % (38.0-78.0); Platelet Count 127 K/mcL (140-440); RBC 3.85 M/mcL (4.63-6.08); Red Cell Distribution Width 13.2 % (11.5-14.5); WBC 18.2 K/mcL (4.5-11.0)
--- NOTE | 2022-09-23 07:43 | Internal Med Progress Note ---
SUBJECTIVE Subjective Patient information: Note initiated : 09/23/22 at 7:41 am Service Date, if different from initiated Date: [] Patient: Tony Abbott 87 y/o M admitted on 09/21/22. Chief Complaint: [] Interval history: History of present illness: Mr. Abbott is a 87 year old M Presents the ED with weakness urinary frequency , Difficulty urinating and mild dysuria. patient was working outside most the day yesterday and was worried about heatstroke. He denies headache fever chills nausea or vomiting. he says he went to bed feeling okay but then when he woke up in the middle night to go to the bathroom as he typically does he was weaker than usual. He also felt like he had to get up much more frequently to urinate. Patient evaluated in the ED found to have a UTI. Leukocytosis 31,000. Elevated BUN to creatinine ratio. Antibiotics and IV fluids started in the ED. 09/22 Patient stated he slept all right. No overnight event or new complaints. Leukocytosis present but no bandemia. Awaiting urine culture. Review of Systems: Pertinent positives as above. denies headache/fever/chills/chest or abdominal pain/cough/dyspnea/diarrhea. PHYSICAL EXAM General: Alert, Awake, No acute Distress Eyes/N/T: EOMI, no scleral icterus, Head/Neck: neck supple, full ROM, CV: kevan but regular, 2/6SM Pulm: Clear b/l, no wheezing/rhonchi/rales, no respiratory distress Abd: soft, nontender, +BS x4 Ext: no clubbing/cyanosis/edema, nontender Neuro: Alert, no focal deficits, moves all extremities, , sensations intact b/l upper/lower Psychiatric: Skin: warm/dry, normal color Constitutional Vitals: Vital Signs Temp Pulse Resp BP Pulse Ox O2 Del Method 97.5 F 52 L 16 129/59 98 Room Air 09/23/22 03:55 09/23/22 03:55 09/23/22 03:55 09/23/22 03:55 09/23/22 03:55 09/23/22 03:55 Period Temp Pulse Resp BP Sys/Carpio Pulse Ox O2 Del Method O2 Flow Rate Last 24 Hr 97.5 F-98.2 F 50-56 16-22 116-134/56-70 94-98 Room Air-Room Air Intake and Output 09/22/22 09/23/22 09/23/22 19:59 03:59 11:59 Intake Total 760 600 Output Total 850 200 Balance 760 -250 -200 Weight 77.973 kg Intake & Output: Intake & Output 09/22/22 09/23/22 09/23/22 19:59 03:59 11:59 Intake Total 760 600 Output Total 850 200 Balance 760 -250 -200 Weight 77.973 kg Intake: Oral 760 600 Output: Void Amount 850 200 Other: Meal Lunch Percent of Meal Consumed 40 Feeding Ability Independent Urine Appearance Clear Clear Urine Color Yellow Yellow Urine Odor Normal Normal OBJ DATA Labs 09/23/22 05:52 09/22/22 05:39 Labs: Abnormal Lab Results 09/23/22 09/22/22 09/22/22 05:52 05:39 05:39 WBC 18.2 H 27.1 H RBC 3.85 L 4.01 L Hgb 11.3 L 11.8 L Hct 34.4 L 36.3 L POC Hct Plt Count 127 L 133 L Neut % (Auto) 36.3 L Lymph % (Auto) 55.6 H Lymph # (Auto) 10.13 H [place] # (Auto) 1.01 H Immature Gran # Absolute Neutrophils Reactive Lymphocytes 3 H Platelet Estimate Decreased A Carbon Dioxide 21 L POC Total CO2 POC Anion Gap Glucose 118 H POC Glucose Calcium 8.3 L Total Bilirubin 1.3 H Direct Bilirubin 0.3 H Total Protein 5.7 L Globulin Urine Appearance Urine Protein Ur Leukocyte Esterase Urine RBC Urine WBC Hyaline Casts Urine Mucus 09/21/22 09/21/22 09/21/22 09:10 06:42 06:36 WBC 31.4 H* RBC 4.35 L Hgb 12.8 L Hct 38.5 L POC Hct Plt Count Neut % (Auto) Lymph % (Auto) Lymph # (Auto) 12.79 H [place] # (Auto) 2.04 H Immature Gran # 0.14 H Absolute Neutrophils 16.28 H Reactive Lymphocytes Platelet Estimate Carbon Dioxide POC Total CO2 POC Anion Gap Glucose POC Glucose Calcium Total Bilirubin Direct Bilirubin Total Protein Globulin 2.1 L Urine Appearance Cloudy A Urine Protein 100 A Ur Leukocyte Esterase 250 A Urine RBC > 182 H Urine WBC > 182 H Hyaline Casts 20 H Urine Mucus Mod A 09/21/22 06:32 WBC RBC Hgb Hct POC Hct 40.0 L Plt Count Neut % (Auto) Lymph % (Auto) Lymph # (Auto) [place] # (Auto) Immature Gran # Absolute Neutrophils Reactive Lymphocytes Platelet Estimate Carbon Dioxide POC Total CO2 21.0 L POC Anion Gap 20.0 H Glucose POC Glucose 146 H Calcium Total Bilirubin Direct Bilirubin Total Protein Globulin Urine Appearance Urine Protein Ur Leukocyte Esterase Urine RBC Urine WBC Hyaline Casts Urine Mucus Meds: Medications Acetaminophen (Acetaminophen 325 Mg Tablet) 650 mg PO Q6HP PRN; Protocol PRN Reason: Per Pain Protocol/Fever > 101 Albuterol/Ipratropium (Ipratropium/Albuterol 3 Ml Ampul.Neb) 3 ml NEB Q4HP PRN PRN Reason: Shortness Of Breath Aspirin (Aspirin 81 Mg Tab.Chew) 81 mg PO QDAY [facility] Last Admin: 09/22/22 08:46 Dose: 81 mg Ceftriaxone Sodium (Ceftriaxone 1 Gm Vial) 1 gm IV Q24H [facility] Last Admin: 09/22/22 08:46 Dose: 1 gm Docusate Sodium (Docusate Sodium 100 Mg Capsule) 100 mg PO BID [facility] Last Admin: 09/22/22 21:08 Dose: 100 mg Enoxaparin Sodium (Enoxaparin 40 Mg/0.4 Ml Syringe) 40 mg SQ DAILY [facility] Last Admin: 09/22/22 08:46 Dose: 40 mg Potassium Chloride 40 meq/ (Dextrose) 520 mls @ 130 mls/hr IV UD PRN PRN Reason: Potassium < 3 Magnesium Sulfate (Magnesium Sulfate) 2 gm in 50 mls @ 50 mls/hr IV UD PRN PRN Reason: Magnesium </= 1.6 Nitroglycerin (Nitroglycerin 0.4 Mg Tab.Subl) 0.4 mg SL Q5M PRN PRN Reason: chest pain Omeprazole (Omeprazole 20 Mg Capsule) 20 mg PO QAMAC [facility] Last Admin: 09/22/22 07:52 Dose: 20 mg Ondansetron HCl (Ondansetron 4 Mg/2 Ml Vial) 4 mg IV Q4HP PRN PRN Reason: Nausea And Vomiting Polyethylene Glycol (Polyethylene Glycol 3350 17 Gm Packet) 17 gm PO DAILYP PRN PRN Reason: Constipation Potassium Chloride (Potassium Chloride 20 Meq Tablet) 40 meq PO UD PRN PRN Reason: Potssium is 3-3.5 Potassium Chloride (Potassium Chloride 20 Meq Tablet) 40 meq PO UD PRN PRN Reason: Potassium < 3 Rosuvastatin Calcium (Rosuvastatin 10 Mg Tablet) 10 mg PO QHS [facility] Last Admin: 09/22/22 21:08 Dose: 10 mg Senna (Sennosides 1 Tablet) 2 tab PO DAILYP PRN PRN Reason: Constipation Last Admin: 09/22/22 08:46 Dose: 2 tab Sodium Chloride (0.9 % Sodium Chloride 10 Ml Syringe) 10 ml IV Q8 [facility] Last Admin: 09/23/22 03:59 Dose: 10 ml A/P Narrative A/P Narrative: A: *UTI(GNB), complicated: *Sepsis: improving *Generalized weakness/Lethargy: 2/2 above *Volume depletion: improving *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: Following outpatient with hematology *DM2 w/neuropathy: *CAD w/cabg: on asa/statin *CKD II: *Anemia, chronic: *HTN/HLD: *GERD: P: -Rocephin, pending UC/BC -Monitor renal function/UOP -monitor electrolytes and replace as needed - -cont home asa/statin -restart home ACEI -SSI -PT/OT -CM for placement needs -ppx: Lovenox / home ppi DNR Time Spent With Patient Time: Total time spent is greater than 50% in coordination of care (as documented) at patient's floor/unit and/or counseling patient: Subsequent: Total time with patient: 35 - 49 minutes QUALITY Stroke Symptom Onset Unknown: No VTE Deep Vein Thrombosis/Pulmonary Embolism Present on Admission: No
[2022-09-23] MEDS: OMEPRAZOLE 20 MG CAPSULE PO SCH (07:49)
[2022-09-23] MEDS ORDERED: LISINOPRIL 5 MG TABLET PO SCH (09:00)
[2022-09-23] MEDS: DOCUSATE SODIUM 100 MG CAPSULE PO SCH (09:11)
[2022-09-23] MEDS: ASPIRIN 81 MG TAB.CHEW PO SCH (09:11)
[2022-09-23] MEDS: ENOXAPARIN 40 MG/0.4 ML SYRINGE SQ SCH (09:11)
[2022-09-23] MEDS: cefTRIAXone 1 GM VIAL IV SCH (09:11)
[2022-09-23] MEDS ORDERED: GABAPENTIN 100 MG CAPSULE PO SCH (21:00)
== END 2022-09-23 11:15 | disposition home or self-care (01) | DRG 872 ==
LOC: ED 06:10 → MEDSUR 09:29
PROVIDERS: ADMIT Internal Medicine; ATTEND Internal Medicine